=== PATIENT | male | born 1960 | race African-American/Black ===

== ENCOUNTER 2018-08-19 02:45 | Inpatient (IN) | payer OTHER ==
[2018-08-19] MEDS ORDERED: Albuterol Sulfate 2.5 mg/3 ml Neb ONE (02:52)
[2018-08-19 03:11] LABS: #Basophils 0.1 thou/uL (0.0-0.2); #Eosinphils 0.1 thou/uL (0.0-0.7); #Lymphocytes 2.6 thou/uL (1.20-3.40); #Monocytes 0.9 thou/uL (0.11-0.59); #Neutrophils 2.7 thou/uL (1.40-6.50); %Basophils 1.8 % (0.0-1.0); %Eosinophils 1.8 % (0.0-10.0); %Lymphocytes 40.4 % (21.0-51.0); %Monocytes 14.4 % (0.0-10.0); %Neutrophils 41.7 % (42.0-75.0); Hemoglobin 14.9 g/dL (14.0-18.0); Mean Corpuscular HGB CONC 33.2 g/dL (32.0-36.0); Mean Corpuscular Hemoglobin 30.4 pg (27.0-31.0); Mean Corpuscular Volume 91.5 fL (78.0-98.0); Mean Platelet Volume 9.7 fL (7.4-10.4); Platelet Count 178 thou/uL (130-400); RBC Distribution Width 12.1 % (11.5-14.5); White Blood Cell (WBC) Count 6.5 thou/uL (4.8-10.8)
[2018-08-19 03:12] LABS: Actual Bicarbonate (HCO3a) 23.1 mEq/L (22-28); Analyzer IN Cardio ER; Base Excess (BEa) -3.1 mEq/L (-2.0 to +3.0); CO2 Tension 45.7 mmHg (35.0-45.0); Carboxyhemoglobin (COHb) 0.3 gm% (0.0-3.0); O2 Tension (PaO2) 176.5 mmHg (80.0-100.0); Potassium - ABG Lab 3.26 mmol/L (3.70-5.30); pH, Arterial 7.32 (7.35-7.45)
[2018-08-19 03:21] LABS: ALV-art Gradient 51.575 (0-20); Puncture Site RRA
[2018-08-19 03:39] LABS: ALT (SGPT) 55 U/L (8-55); AST (SGOT) 37 U/L (5-34); Albumin 4.8 g/dL (3.5-5.0); Alkaline Phosphatase 102 U/L (40-150); Anion Gap 21 mmol/L (10-20); BUN (Urea Nitrogen) 11 mg/dL (8.4-25.7); Bilirubin, Total 0.6 mg/dL (0.2-1.2); CK (CPK) 124 U/L (30-200); Calc. Creatinine Clearance 0 mL/min (70-130); Calcium 9.8 mg/dL (7.8-10.44); Carbon Dioxide 17 mmol/L (22-29); Chloride 110 mmol/L (98-107); Estimated GFR-MDRD 76; Globulin 2.5 g/dL (2.4-3.5); Glucose 212 mg/dL (70-105); Potassium 3.7 mmol/L (3.5-5.1); Protein, Total 7.3 g/dL (6.0-8.3); Sodium 144 mmol/L (136-145)
[2018-08-19 04:45] LABS: Lactic Acid 5.6 mmol/L (0.5-2.2)
[2018-08-19] MEDS ORDERED: Piperacillin/Tazobactam 3.375 GM VIAL ONE (05:04)
--- NOTE | 2018-08-19 07:19 | HP ---
PRIMARY CARE PHYSICIAN: Viraj Pascal MD POWER BALLAST MACHINE OPERATOR: Pop Bond MD CHIEF COMPLAINT: Feeling weak and short of breath. HISTORY OF PRESENT ILLNESS: Mr. Bustos is a very pleasant 57-year-old gentleman, who has a history of COPD, chronic respiratory failure, hypertension, and chronic kidney disease. He was in his usual state of health until last week when he says that he was coughing more and spitting up phlegm, which has been bright yellow. He says he had seen Dr. Bond recently and had been on a course of steroids and had recently just finished the steroids about 2 to 3 days ago. He also says that Dr. Bond was trying different inhalers out with him and says that he had been in between taking Breo and Ellipta and another inhaler, but was likely going to go back to QVAR as well as Atrovent and possibly Proventil. It is a kind of difficult to get a full detailed medication history from him, but it sounds like he may have been off some of his inhalers in the last couple of days. He denies any sick contacts. He denies any chest pain. He denies any fevers or chills. He also denies any increase in lower extremity edema, but says that lately everything has been out of control with regard to blood pressure and blood sugar and once this seemed to be getting better, then his breathing got out of control. When he was evaluated in the ER, he was found to be hypoxic and required BiPAP and he is being admitted to the [facility]. REVIEW OF SYSTEMS: All systems were reviewed and are negative except for that mentioned in the history of present illness. 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 PAST SURGICAL HISTORY: He has had surgery on his left foot, elbow surgery, finger surgery, and jaw surgery. ALLERGIES: NO KNOWN DRUG ALLERGIES. SOCIAL HISTORY: He is . He is a former smoker, he quit 10 years ago. He denies any drug use and he occasionally drinks. Code status is full code. FAMILY HISTORY: Significant for hypertension, cancer, and diabetes. MEDICATIONS: He is not sure of all of the names and doses of his medications, but is on QVAR, Atrovent, and Breo. PHYSICAL EXAMINATION: GENERAL: He is alert and oriented. He appears to be in some distress due to shortness of breath. He is well developed and well nourished. VITAL SIGNS: Blood pressure was 166/92; heart rate is in the 90s; respiratory rate of 24; and temperature, he is afebrile, 98.6. HEENT: His pupils are equal, round, and reactive to light. Extraocular muscles are intact. Sclerae are anicteric. Throat; no erythema, no exudates. NECK: No adenopathy. No bruits. LUNGS: He has decreased air movement throughout. He does not have any rales, only very faint wheeze. CARDIOVASCULAR: Heart rate is tachycardic. There is no S3 or S4. No appreciable murmurs, clicks, or rubs. ABDOMEN: Obese. It is soft. It is nontender, nondistended. Positive for bowel sounds. No rebound or guarding. EXTREMITIES: He has trace pedal edema of the left greater than the right. He has some chronic venous stasis changes. NEUROLOGIC: Cranial nerves II through XII are intact. Muscle strength is 5/5 in both his upper and lower extremities. SKIN AND INTEGUMENT: There are no skin changes. No rash. LABORATORY RESULTS: Sodium is 144, potassium 3.7, chloride is 110, CO2 of 17, BUN of 11, creatinine 1.2, and glucose is 212. Lactic acid was 5.6. White blood cell count 6.5, hemoglobin 14.9, hematocrit is 44.9, and platelet count is 178. ABG; pH of 7.32, pCO2 of 45.7, and pO2 is 176. ASSESSMENT: This is a pleasant 57-year-old gentleman, who is in acute on chronic respiratory distress due to chronic obstructive pulmonary disease exacerbation. 1. For the chronic obstructive pulmonary disease exacerbation, he will be admitted to the [facility], since he is on BiPAP. His open hearth worker will be consulted. We will place him on DuoNeb and IV steroids as well as a long-acting beta-agonist. He has recently been hospitalized in May and his charts will need to be merged and for this reason, we will cover him for hospital-acquired organisms. 2. For diabetes mellitus, we will need to find out the names and doses of his medications and reconcile these. He will be placed on sliding scale. 3. Hypertension. Again, we will need to reconcile his medications and restart as appropriate and he will be on p.r.n. medications. Further recommendations will depend on his progress. Job ID: [id number]
[2018-08-19] MEDS ORDERED: Acetaminophen 325 MG TAB PO PRN (07:36)
[2018-08-19] MEDS ORDERED: Benzonatate 100 MG CAP PO PRN (07:36)
[2018-08-19] MEDS ORDERED: hydrALAZINE 20 MG/ML VIAL SLOW IVP PRN (07:36)
[2018-08-19] MEDS ORDERED: Temazepam 15 MG CAP PO PRN (07:36)
[2018-08-19] MEDS ORDERED: Dextrose 5% in Water 1,000 ML IV PRN (07:36)
[2018-08-19] MEDS ORDERED: Dextrose 50% Abboject 50 ML SYRINGE SLOW IVP PRN (07:36)
[2018-08-19] MEDS ORDERED: Ondansetron PF 4 MG/2 ML Vial IVP PRN (07:36)
[2018-08-19] MEDS ORDERED: Calcium Carbonate 500 MG ChewTAB PO PRN (07:53)
[2018-08-19] MEDS ORDERED: Ondansetron ODT 4 MG TAB PO PRN (07:53)
[2018-08-19] MEDS ORDERED: Cepastat Lozenges 1 LOZ PO PRN (07:53)
[2018-08-19] MEDS ORDERED: Loratadine 10 MG TAB PO PRN (07:53)
[2018-08-19] MEDS ORDERED: Loperamide HCl 2 MG CAP PO PRN (07:53)
[2018-08-19] MEDS ORDERED: Eucerin (Mineral Oil/Petrolatum,White) 30 gm Jar TOP PRN (07:53)
[2018-08-19] MEDS ORDERED: Senokot S 8.6-50 MG TAB PO PRN (07:53)
[2018-08-19] MEDS ORDERED: Sodium Chloride 0.65% Nasal 44 ML BOT EA NARE PRN (07:53)
[2018-08-19] MEDS ORDERED: Artificial Tears 18 DROP/0.9 ML EA EYE PRN (07:53)
[2018-08-19] MEDS ORDERED: Diabetic Tussin 200 MG/10 ML UDCUP PO PRN (07:53)
--- NOTE | 2018-08-19 08:09 | RAD ---
RADIOGRAPH CHEST 1 VIEW: Date: 08/19/2018. Time: 2:57 a.m. HISTORY: A 57-year-old male with dyspnea. COMPARISON: 06/26/2018 and 06/22/2018. FINDINGS: There is a small region of increased attenuation effacing the left lateral costophrenic angle and the lateral aspect of the left hemidiaphragm. This is similar in appearance to 06/26/2018, but this find ing was not present on 06/22/2018. The rest of the visualized lung arenas are clear. No cardiomegal y or pneumothorax. No pulmonary edema. IMPRESSION: Small opacity at the lingula persists since 06/26/2018. This could be an infiltrate, atelectasis, or pleural effusion. A lateral view would be useful. CLAUDY [] POS: LOBITO
[2018-08-19] MEDS ORDERED: Enoxaparin Sodium 40 MG/0.4 ML SYRINGE ONE (08:13)
[2018-08-19] MEDS ORDERED: HumaLOG 300 UNITS/3 ML VIAL ONE (08:13)
[2018-08-19] MEDS: Sodium Chloride 0.9% 1,000 ML IV SCH ×2 (08:35→20:42)
[2018-08-19] MEDS: Enoxaparin Sodium 40 MG/0.4 ML SYRINGE SC SCH (08:36)
[2018-08-19] MEDS: Vancomycin HCl 1 GM in Premix Bag 1 BAG IVPB SCH ×2 (08:36→20:42)
[2018-08-19] MEDS: HumaLOG 300 UNITS/3 ML VIAL SC PRN ×3 (08:37→20:44)
[2018-08-19] MEDS: Saccharomyces boulardii 250 MG CAP PO SCH (09:19)
--- NOTE | 2018-08-19 12:33 | PDOC.PN ---
- Subjective Encounter Start Date: 08/19/18 Encounter Start Time: 09:50 -: old records requested/rev Patient seen and examined. pt has dry cough, feels dyspnea, his sats drops with sleep, No overnight events - Objective Resuscitation Status - Order Detail: 08/19/18 06:46 Resuscitation Status Routine Resuscitation Status: FULL: Full Resuscitation MAR Reviewed: Yes Vital Signs & Weight: Vital Signs (12 hours) Pulse Resp 08/19/18 09:54 117 H 18 Result Diagrams: 08/19/18 03:03 08/19/18 03:03 Additional Labs: Accuchecks 08/19/18 08:31 POC Glucose 252 H Radiology Reviewed by me: Yes (chest xray reviewed) EKG Reviewed by me: Yes (sinus tachycardia) Phys Exam - Physical Examination Constitutional: NAD HEENT: PERRLA, moist MMs, sclera anicteric Neck: no JVD, supple reduced air entry both side Cardiovascular: RRR, no significant murmur, no rub tachycardia Gastrointestinal: soft, non-tender, no distention, positive bowel sounds Musculoskeletal: no edema, pulses present Neurological: non-focal, normal sensation Lymphatic: no nodes Psychiatric: normal affect, A&O x 3 Skin: no rash, normal turgor Dx/Plan (1) Acute on chronic respiratory failure with hypoxia Code(s): J96.21 - ACUTE AND CHRONIC RESPIRATORY FAILURE WITH HYPOXIA Status: Acute (2) COPD exacerbation Code(s): J44.1 - CHRONIC OBSTRUCTIVE PULMONARY DISEASE W (ACUTE) EXACERBATION Status: Acute (3) Lactic acidosis Code(s): E87.2 - ACIDOSIS Status: Acute (4) Diabetes type 2, controlled Code(s): E11.9 - TYPE 2 DIABETES MELLITUS WITHOUT COMPLICATIONS Status: Chronic (5) Hypertension Code(s): I10 - ESSENTIAL (PRIMARY) HYPERTENSION Status: Chronic - Plan cont current plan of care, continue antibiotics, respiratory therapy * continue bipap * pulmonary consulted * continue solumedrol, duoneb, * continue empiric levaquin and vancomycin * medication reviewed as below * symptomatic treatment * he will need to monitor in imcu as he will need intermittently bipap given his terminal copd * will check viral panel. * continue ivf * repeat labs tomorrow Review of Systems - Review of Systems ENT: negative: Ear Pain, Ear Discharge, Nose Pain, Nose Discharge, Nose Congestion, Mouth Pain, Mouth Swelling, Throat Pain, Throat Swelling, Other Respiratory: Cough, Shortness of Breath, SOB with Excertion, Wheezing. negative : Dry, Hemoptysis, Pleuritic Pain, Sputum Cardiovascular: negative: chest pain, palpitations, orthopnea, paroxysmal nocturnal dyspnea, edema, light headedness, other Gastrointestinal: negative: Nausea, Vomiting, Abdominal Pain, Diarrhea, Constipation, Melena, Hematochezia, Other Genitourinary: negative: Dysuria, Frequency, Incontinence, Hematuria, Retention , Other Musculoskeletal: negative: Neck Pain, Shoulder Pain, Arm Pain, Back Pain, Hand Pain, Leg Pain, Foot Pain, Other Skin: negative: Rash, Lesions, Raul, Bruising, Other - Medications/Allergies Allergies/Adverse Reactions: Allergies Allergy/AdvReac Type Severity Reaction Status Date / Time No Known Allergies Allergy Unverified 08/19/18 06:19 Medications: Current Medications Acetaminophen (Tylenol) 650 mg PO Q4H PRN PRN Reason: Headache/Fever/Mild Pain (1-3) Albuterol/Ipratropium (Duoneb) 3 ml NEB [id number] [facility] Last Admin: 08/19/18 09:54 Dose: 3 ml Albuterol/Ipratropium (Duoneb) 3 ml NEB [id number] PRN PRN Reason: SOB &/or Wheezing Artificial Tears (Tears Naturale) 2 drop EA EYE PRN PRN PRN Reason: Dry Eyes Benzonatate (Tessalon) 100 mg PO Q6H PRN PRN Reason: Cough Calcium Carbonate (Tums) 1,000 mg PO Q4H PRN PRN Reason: Heartburn or Indigestion Dextrose/Water (Dextrose 50%) 25 gm SLOW IVP PRN PRN PRN Reason: Hypoglycemia Enoxaparin Sodium (Lovenox) 40 mg SC 0900 [facility] Last Admin: 08/19/18 08:36 Dose: 40 mg Glucagon (Glucagon) 1 mg IM PRN PRN PRN Reason: Hypoglycemia Guaifenesin (Robitussin Sf) 200 mg PO Q4H PRN PRN Reason: Cough Hydralazine HCl (Apresoline) 10 mg SLOW IVP Q4H PRN PRN Reason: SBP > 180 and HR < 70 Dextrose/Water (D5w) 1,000 mls @ 0 mls/hr IV .Q0M PRN PRN Reason: Hypoglycemia Levofloxacin 750 mg/ Device 150 mls @ 100 mls/hr IVPB Q24HR [facility] Last Admin: 08/19/18 08:08 Dose: 150 mls Sodium Chloride (Normal Saline 0.9%) 1,000 mls @ 75 mls/hr IV .[id number] [facility] Last Admin: 08/19/18 08:35 Dose: 1,000 mls Vancomycin HCl 1 gm/ Device 200 mls @ 200 mls/hr IVPB Q12HR [facility] Last Admin: 08/19/18 08:36 Dose: 200 mls Insulin Human Lispro (Humalog) 0 units SC .MODERATE SLIDING SC PRN PRN Reason: Moderate Correctional Scale Last Admin: 08/19/18 12:31 Dose: 6 unit Insulin Human Lispro (Humalog) 0 units SC .BEDTIME SLIDING SC PRN PRN Reason: Bedtime Correctional Scale Loperamide HCl (Imodium) 2 mg PO PRN PRN PRN Reason: Diarrhea/Loose Stools Loratadine (Claritin) 10 mg PO DAILYPRN PRN PRN Reason: Sinus Symptoms Methylprednisolone Sodium Succinate (Solu-Medrol) 40 mg IVP Q6HR [facility] Last Admin: 08/19/18 12:26 Dose: 40 mg Mineral Oil/White Petrolatum (Eucerin Cream) 0 gm TOP BIDPRN PRN PRN Reason: Dry Skin Mometasone Furoate/Formoterol Fumar (Dulera 100 Mcg/5 Mcg Inhaler) 1 puff INH BID-RT [facility] Ondansetron HCl (Zofran) 4 mg IVP Q6H PRN PRN Reason: Nausea/Vomiting Ondansetron HCl (Zofran Odt) 4 mg PO Q6H PRN PRN Reason: Nausea/Vomiting Pantoprazole Sodium (Protonix) 40 mg PO DAILY [facility] Last Admin: 08/19/18 08:57 Dose: 40 mg Saccharomyces Boulardii (Florastor) 250 mg PO DAILY [facility] Last Admin: 08/19/18 09:19 Dose: 250 mg Senna/Docusate Sodium (Senokot S) 2 tab PO BID PRN PRN Reason: Constipation Sodium Chloride ([place] Nasal [place] 0.65%) 0 ml EA NARE QIDPRN PRN PRN Reason: Nasal Congestion Sodium Chloride (Flush - Normal Saline) 10 ml IVF Q12HR [facility] Last Admin: 08/19/18 11:32 Dose: Not Given Sodium Chloride (Flush - Normal Saline) 10 ml IVF PRN PRN PRN Reason: Saline Flush Temazepam (Restoril) 15 mg PO HSPRN PRN PRN Reason: Insomnia Throat Lozenges (Cepastat Lozenges) 1 eris PO Q2H PRN PRN Reason: Sore Throat
[2018-08-19 13:33] LABS: Lactic Acid 5.7 mmol/L (0.5-2.2)
[2018-08-19 17:03] VITALS: BMI 31.3
[2018-08-19] MEDS: Mometasone/Formoterol 120 PUFF INHALER INH SCH (19:09)
[2018-08-19] MEDS ORDERED: Prevnar 13-Val Conj/PF 0.5 ML SYRINGE IM ONE (21:00)
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
[2018-08-20] MEDS: HumaLOG 300 UNITS/3 ML VIAL SC PRN ×4 (06:02→20:46)
[2018-08-20] MEDS: Sodium Chloride 0.9% 1,000 ML IV SCH ×2 (06:06→23:28)
[2018-08-20] MEDS: Mometasone/Formoterol 120 PUFF INHALER INH SCH ×2 (07:26→18:54)
[2018-08-20 08:01] LABS: #Lymphocytes 0.6 thou/uL (1.20-3.40); #Monocytes 0.3 thou/uL (0.11-0.59); #Neutrophils 8.9 thou/uL (1.40-6.50); %Eosinophils 0.2 % (0.0-10.0); %Lymphocytes 5.9 % (21.0-51.0); %Monocytes 3.4 % (0.0-10.0); %Neutrophils 90.5 % (42.0-75.0); Hemoglobin 12.7 g/dL (14.0-18.0); Mean Corpuscular HGB CONC 32.9 g/dL (32.0-36.0); Mean Corpuscular Hemoglobin 30.7 pg (27.0-31.0); Mean Corpuscular Volume 93.5 fL (78.0-98.0); Mean Platelet Volume 9.6 fL (7.4-10.4); Platelet Count 152 thou/uL (130-400); RBC Distribution Width 12.2 % (11.5-14.5); Red Blood Cell (RBC) Count 4.14 mill/uL (4.70-6.10); White Blood Cell (WBC) Count 9.8 thou/uL (4.8-10.8)
[2018-08-20] MEDS: Saccharomyces boulardii 250 MG CAP PO SCH (08:23)
[2018-08-20] MEDS: Enoxaparin Sodium 40 MG/0.4 ML SYRINGE SC SCH (08:24)
[2018-08-20] MEDS: Vancomycin HCl 1 GM in Premix Bag 1 BAG IVPB SCH ×2 (08:24→20:45)
[2018-08-20 08:25] LABS: Anion Gap 15 mmol/L (10-20); BUN (Urea Nitrogen) 11 mg/dL (8.4-25.7); Calc. Creatinine Clearance 107 mL/min (70-130); Calcium 9.9 mg/dL (7.8-10.44); Carbon Dioxide 20 mmol/L (22-29); Chloride 106 mmol/L (98-107); Estimated GFR-MDRD 88; Glucose 291 mg/dL (70-105); Potassium 4.2 mmol/L (3.5-5.1); Sodium 137 mmol/L (136-145)
[2018-08-20] MEDS ORDERED: Insulin Glargine 10 UNITS in Pre-Filled Syringe 1 EACH SC SCH ×2 (10:15→21:00)
[2018-08-20 10:27] LABS: Lactic Acid 3.7 mmol/L (0.5-2.2)
--- NOTE | 2018-08-20 11:26 | PDOC.PN ---
- Subjective Encounter Start Date: 08/20/18 Encounter Start Time: 09:40 Patient seen and examined. No new complaints. No overnight events he is overall better today - Objective Resuscitation Status - Order Detail: 08/19/18 06:46 Resuscitation Status Routine Resuscitation Status: FULL: Full Resuscitation MAR Reviewed: Yes Vital Signs & Weight: Vital Signs (12 hours) Temp Pulse Resp BP Pulse Ox 08/20/18 11:06 98.9 F 99 22 H 135/91 H 93 L 08/20/18 07:53 92 L 08/20/18 07:26 92 L 08/20/18 07:22 100 18 99 08/20/18 07:21 99.0 F 98 18 168/93 H 91 L 08/20/18 04:00 98.7 F 104 H 16 120/74 92 L 08/20/18 00:21 108 H 20 94 L 08/19/18 23:54 99.0 F 104 H 18 147/93 H 93 L Weight Weight 212 lb 3.2 oz Result Diagrams: 08/20/18 07:54 08/20/18 07:54 Additional Labs: Accuchecks 08/20/18 08/20/18 08/19/18 10:14 05:30 20:19 POC Glucose 377 H 278 H 332 H 08/19/18 12:27 POC Glucose 268 H EKG Reviewed by me: Yes (nsr) Phys Exam - Physical Examination Constitutional: NAD HEENT: PERRLA, moist MMs, sclera anicteric Neck: no JVD, supple reduced air entry+ Cardiovascular: RRR, no significant murmur, no rub Gastrointestinal: soft, non-tender, no distention, positive bowel sounds Musculoskeletal: no edema, pulses present Neurological: non-focal, normal sensation, moves all 4 limbs Lymphatic: no nodes Psychiatric: normal affect, A&O x 3 Skin: no rash, normal turgor Dx/Plan (1) Acute on chronic respiratory failure with hypoxia Code(s): J96.21 - ACUTE AND CHRONIC RESPIRATORY FAILURE WITH HYPOXIA Status: Acute (2) COPD exacerbation Code(s): J44.1 - CHRONIC OBSTRUCTIVE PULMONARY DISEASE W (ACUTE) EXACERBATION Status: Acute (3) Lactic acidosis Code(s): E87.2 - ACIDOSIS Status: Acute (4) Diabetes type 2, controlled Code(s): E11.9 - TYPE 2 DIABETES MELLITUS WITHOUT COMPLICATIONS Status: Chronic (5) Hypertension Code(s): I10 - ESSENTIAL (PRIMARY) HYPERTENSION Status: Chronic - Plan cont current plan of care, continue antibiotics, respiratory therapy * continue current optimum medical treatment for copd * he needs more time to recover but he is improving * pulmonary recommendation appreciated * medication reviewed as below * symptomatic treatment. Review of Systems - Review of Systems ENT: negative: Ear Pain, Ear Discharge, Nose Pain, Nose Discharge, Nose Congestion, Mouth Pain, Mouth Swelling, Throat Pain, Throat Swelling, Other Respiratory: Cough, Shortness of Breath, SOB with Excertion. negative: Dry, Hemoptysis, Pleuritic Pain, Sputum, Wheezing Cardiovascular: negative: chest pain, palpitations, orthopnea, paroxysmal nocturnal dyspnea, edema, light headedness, other Gastrointestinal: negative: Nausea, Vomiting, Abdominal Pain, Diarrhea, Constipation, Melena, Hematochezia, Other Genitourinary: negative: Dysuria, Frequency, Incontinence, Hematuria, Retention , Other Musculoskeletal: negative: Neck Pain, Shoulder Pain, Arm Pain, Back Pain, Hand Pain, Leg Pain, Foot Pain, Other - Medications/Allergies Allergies/Adverse Reactions: Allergies Allergy/AdvReac Type Severity Reaction Status Date / Time No Known Allergies Allergy Verified 08/19/18 17:17 Medications: Current Medications Acetaminophen (Tylenol) 650 mg PO Q4H PRN PRN Reason: Headache/Fever/Mild Pain (1-3) Albuterol/Ipratropium (Duoneb) 3 ml NEB [id number] [facility] Last Admin: 08/20/18 07:22 Dose: 3 ml Albuterol/Ipratropium (Duoneb) 3 ml NEB [id number] PRN PRN Reason: SOB &/or Wheezing Artificial Tears (Tears Naturale) 2 drop EA EYE PRN PRN PRN Reason: Dry Eyes Benzonatate (Tessalon) 100 mg PO Q6H PRN PRN Reason: Cough Calcium Carbonate (Tums) 1,000 mg PO Q4H PRN PRN Reason: Heartburn or Indigestion Dextrose/Water (Dextrose 50%) 25 gm SLOW IVP PRN PRN PRN Reason: Hypoglycemia Enoxaparin Sodium (Lovenox) 40 mg SC 0900 [facility] Last Admin: 08/20/18 08:24 Dose: 40 mg Glucagon (Glucagon) 1 mg IM PRN PRN PRN Reason: Hypoglycemia Guaifenesin (Robitussin Sf) 200 mg PO Q4H PRN PRN Reason: Cough Hydralazine HCl (Apresoline) 10 mg SLOW IVP Q4H PRN PRN Reason: SBP > 180 and HR < 70 Dextrose/Water (D5w) 1,000 mls @ 0 mls/hr IV .Q0M PRN PRN Reason: Hypoglycemia Levofloxacin 750 mg/ Device 150 mls @ 100 mls/hr IVPB Q24HR [facility] Last Admin: 08/20/18 08:24 Dose: 150 mls Sodium Chloride (Normal Saline 0.9%) 1,000 mls @ 75 mls/hr IV .[id number] [facility] Last Admin: 08/20/18 06:06 Dose: 1,000 mls Vancomycin HCl 1 gm/ Device 200 mls @ 200 mls/hr IVPB Q12HR [facility] Last Admin: 08/20/18 08:24 Dose: 200 mls Insulin Glargine 10 units/ (Miscellaneous Medication) 0.1 mls @ 0 mls/hr SC HS [facility] Insulin Glargine 10 units/ (Miscellaneous Medication) 0.1 mls @ 0 mls/hr SC QAM [facility] Insulin Glargine 10 units/ (Miscellaneous Medication) 0.1 mls @ 0 mls/hr SC NOW [facility] Stop: 08/20/18 12:00 Insulin Human Lispro (Humalog) 0 units SC .MODERATE SLIDING SC PRN PRN Reason: Moderate Correctional Scale Last Admin: 08/20/18 06:02 Dose: 6 unit Insulin Human Lispro (Humalog) 0 units SC .BEDTIME SLIDING SC PRN PRN Reason: Bedtime Correctional Scale Last Admin: 08/19/18 20:44 Dose: 4 unit Loperamide HCl (Imodium) 2 mg PO PRN PRN PRN Reason: Diarrhea/Loose Stools Loratadine (Claritin) 10 mg PO DAILYPRN PRN PRN Reason: Sinus Symptoms Methylprednisolone Sodium Succinate (Solu-Medrol) 20 mg IVP Q6HR [facility] Mineral Oil/White Petrolatum (Eucerin Cream) 0 gm TOP BIDPRN PRN PRN Reason: Dry Skin Mometasone Furoate/Formoterol Fumar (Dulera 100 Mcg/5 Mcg Inhaler) 1 puff INH BID-RT [facility] Last Admin: 08/20/18 07:26 Dose: 1 puff Ondansetron HCl (Zofran) 4 mg IVP Q6H PRN PRN Reason: Nausea/Vomiting Ondansetron HCl (Zofran Odt) 4 mg PO Q6H PRN PRN Reason: Nausea/Vomiting Pantoprazole Sodium (Protonix) 40 mg PO DAILY [facility] Last Admin: 08/20/18 08:23 Dose: 40 mg Saccharomyces Boulardii (Florastor) 250 mg PO DAILY [facility] Last Admin: 08/20/18 08:23 Dose: 250 mg Senna/Docusate Sodium (Senokot S) 2 tab PO BID PRN PRN Reason: Constipation Sodium Chloride ([place] Nasal [place] 0.65%) 0 ml EA NARE QIDPRN PRN PRN Reason: Nasal Congestion Sodium Chloride (Flush - Normal Saline) 10 ml IVF Q12HR [facility] Last Admin: 08/20/18 08:24 Dose: 10 ml Sodium Chloride (Flush - Normal Saline) 10 ml IVF PRN PRN PRN Reason: Saline Flush Temazepam (Restoril) 15 mg PO HSPRN PRN PRN Reason: Insomnia Throat Lozenges (Cepastat Lozenges) 1 eris PO Q2H PRN PRN Reason: Sore Throat
--- NOTE | 2018-08-20 11:40 | PRG ---
DATE OF SERVICE: 08/20/2018 SUBJECTIVE: Mr. Bustos says he is feeling better. He has no complaints today. He is afebrile. OBJECTIVE: VITAL SIGNS: Heart rate is 99, respiratory rate is 22, oximetry is 93, blood pressure 135/91. LUNGS: Remarkable for end-expiratory wheezes. HEART: Regular rhythm. S1, S2 are normal. ABDOMEN: Soft and nontender. EXTREMITIES: Without edema. LABORATORY DATA: Sodium 137, potassium 4.2, chloride 106, bicarb 20, BUN 11, and creatinine 1.06. White count 9.8, hemoglobin 12.7, platelets 152. IMPRESSION: 1. Status asthmaticus/chronic obstructive pulmonary disease exacerbation. 2. 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 3. Diabetes, poorly controlled because of steroid use. 4. ? steroid dependence. His shortness of breath this admission started 3 days after tapering off his steroids. PLAN: Continue current supportive care. Medical records from past admissions are not available in the computer system and these records need to be identified and merged. Job ID: [id number]
[2018-08-21] MEDS: HumaLOG 300 UNITS/3 ML VIAL SC PRN ×4 (05:56→20:48)
[2018-08-21] MEDS: Mometasone/Formoterol 120 PUFF INHALER INH SCH ×2 (06:47→19:10)
[2018-08-21] MEDS ORDERED: Insulin Glargine 10 UNITS in Pre-Filled Syringe 1 EACH SC SCH (09:00)
[2018-08-21] MEDS: Enoxaparin Sodium 40 MG/0.4 ML SYRINGE SC SCH (09:01)
[2018-08-21] MEDS: Insulin Glargine 20 UNITS in Pre-Filled Syringe 1 EACH SC SCH (09:01)
[2018-08-21] MEDS: Saccharomyces boulardii 250 MG CAP PO SCH (09:02)
--- NOTE | 2018-08-21 11:04 | PDOC.PN ---
- Subjective Encounter Start Date: 08/21/18 Encounter Start Time: 09:20 Patient seen and examined. No new complaints. No overnight events he did not require bipap, has cough, less dyspnea - Objective Resuscitation Status - Order Detail: 08/19/18 06:46 Resuscitation Status Routine Resuscitation Status: FULL: Full Resuscitation MAR Reviewed: Yes Vital Signs & Weight: Vital Signs (12 hours) Temp Pulse Resp BP BP Pulse Ox 08/21/18 08:00 92 L 08/21/18 07:37 98.6 F 88 17 141/94 H 92 L 08/21/18 06:53 91 18 93 L 08/21/18 06:47 75 18 93 L 08/21/18 03:46 98.7 F 84 18 153/86 H 94 L 08/20/18 23:40 96 08/20/18 23:34 98.9 F 92 18 129/82 93 L Weight Weight 209 lb 8 oz I&O: 08/20/18 08/21/18 08/22/18 06:59 06:59 06:59 Intake Total 3520 Output Total 5775 Balance -2255 Result Diagrams: 08/20/18 07:54 08/20/18 07:54 Additional Labs: Accuchecks 08/21/18 08/20/18 08/20/18 05:56 20:08 16:24 POC Glucose 361 H 355 H 359 H EKG Reviewed by me: Yes (nsr) Phys Exam - Physical Examination Constitutional: NAD HEENT: PERRLA, moist MMs, sclera anicteric Neck: no JVD, supple Respiratory: no wheezing, no rales, no rhonchi Cardiovascular: RRR, no significant murmur, no rub Gastrointestinal: soft, non-tender, no distention, positive bowel sounds Musculoskeletal: no edema, pulses present Neurological: non-focal, normal sensation, moves all 4 limbs Lymphatic: no nodes Psychiatric: normal affect, A&O x 3 Skin: no rash, normal turgor Dx/Plan (1) Acute on chronic respiratory failure with hypoxia Code(s): J96.21 - ACUTE AND CHRONIC RESPIRATORY FAILURE WITH HYPOXIA Status: Acute (2) COPD exacerbation Code(s): J44.1 - CHRONIC OBSTRUCTIVE PULMONARY DISEASE W (ACUTE) EXACERBATION Status: Acute (3) Lactic acidosis Code(s): E87.2 - ACIDOSIS Status: Acute (4) Diabetes type 2, controlled Code(s): E11.9 - TYPE 2 DIABETES MELLITUS WITHOUT COMPLICATIONS Status: Chronic (5) Hypertension Code(s): I10 - ESSENTIAL (PRIMARY) HYPERTENSION Status: Chronic - Plan cont current plan of care, continue antibiotics, respiratory therapy * his blood sugar not controlled due to steroid, today I have increased levemir dose * medication reviewed as below * symptomatic treatment * transfer to medical * continue current copd treatment * ambulate as tolerated * expecting discharge soon. Review of Systems - Review of Systems Constitutional: negative: fever, chills, sweats, weakness, malaise, other Eyes: negative: Pain, Vision Change, Conjunctivae Inflammation, Eyelid Inflammation, Redness, Other ENT: negative: Ear Pain, Ear Discharge, Nose Pain, Nose Discharge, Nose Congestion, Mouth Pain, Mouth Swelling, Throat Pain, Throat Swelling, Other Respiratory: Cough. negative: Dry, Shortness of Breath, Hemoptysis, SOB with Excertion, Pleuritic Pain, Sputum, Wheezing Cardiovascular: negative: chest pain, palpitations, orthopnea, paroxysmal nocturnal dyspnea, edema, light headedness, other Gastrointestinal: negative: Nausea, Vomiting, Abdominal Pain, Diarrhea, Constipation, Melena, Hematochezia, Other Genitourinary: negative: Dysuria, Frequency, Incontinence, Hematuria, Retention , Other Musculoskeletal: negative: Neck Pain, Shoulder Pain, Arm Pain, Back Pain, Hand Pain, Leg Pain, Foot Pain, Other Skin: negative: Rash, Lesions, Raul, Bruising, Other - Medications/Allergies Allergies/Adverse Reactions: Allergies Allergy/AdvReac Type Severity Reaction Status Date / Time No Known Allergies Allergy Verified 08/19/18 17:17 Medications: Current Medications Acetaminophen (Tylenol) 650 mg PO Q4H PRN PRN Reason: Headache/Fever/Mild Pain (1-3) Albuterol/Ipratropium (Duoneb) 3 ml NEB [id number] Last Admin: 08/21/18 06:53 Dose: 3 ml Albuterol/Ipratropium (Duoneb) 3 ml NEB [id number] PRN PRN Reason: SOB &/or Wheezing Artificial Tears (Tears Naturale) 2 drop EA EYE PRN PRN PRN Reason: Dry Eyes Benzonatate (Tessalon) 100 mg PO Q6H PRN PRN Reason: Cough Calcium Carbonate (Tums) 1,000 mg PO Q4H PRN PRN Reason: Heartburn or Indigestion Dextrose/Water (Dextrose 50%) 25 gm SLOW IVP PRN PRN PRN Reason: Hypoglycemia Enoxaparin Sodium (Lovenox) 40 mg SC 0900 [facility] Last Admin: 08/21/18 09:01 Dose: 40 mg Glucagon (Glucagon) 1 mg IM PRN PRN PRN Reason: Hypoglycemia Guaifenesin (Robitussin Sf) 200 mg PO Q4H PRN PRN Reason: Cough Hydralazine HCl (Apresoline) 10 mg SLOW IVP Q4H PRN PRN Reason: SBP > 180 and HR < 70 Dextrose/Water (D5w) 1,000 mls @ 0 mls/hr IV .Q0M PRN PRN Reason: Hypoglycemia Levofloxacin 750 mg/ Device 150 mls @ 100 mls/hr IVPB Q24HR [facility] Last Admin: 08/21/18 09:02 Dose: 150 mls Insulin Glargine 20 units/ (Miscellaneous Medication) 0.2 mls @ 0 mls/hr SC [facility] Insulin Glargine 20 units/ (Miscellaneous Medication) 0.2 mls @ 0 mls/hr SC QAM [facility] Last Admin: 08/21/18 09:01 Dose: 0.2 mls Insulin Human Lispro (Humalog) 0 units SC .MODERATE SLIDING SC PRN PRN Reason: Moderate Correctional Scale Last Admin: 08/21/18 10:40 Dose: 10 unit Insulin Human Lispro (Humalog) 0 units SC .BEDTIME SLIDING SC PRN PRN Reason: Bedtime Correctional Scale Last Admin: 08/20/18 20:46 Dose: 5 unit Loperamide HCl (Imodium) 2 mg PO PRN PRN PRN Reason: Diarrhea/Loose Stools Loratadine (Claritin) 10 mg PO DAILYPRN PRN PRN Reason: Sinus Symptoms Methylprednisolone Sodium Succinate (Solu-Medrol) 20 mg IVP Q6HR [facility] Last Admin: 08/21/18 05:56 Dose: 20 mg Mineral Oil/White Petrolatum (Eucerin Cream) 0 gm TOP BIDPRN PRN PRN Reason: Dry Skin Mometasone Furoate/Formoterol Fumar (Dulera 100 Mcg/5 Mcg Inhaler) 1 puff INH BID-RT [facility] Last Admin: 08/21/18 06:47 Dose: 1 puff Ondansetron HCl (Zofran) 4 mg IVP Q6H PRN PRN Reason: Nausea/Vomiting Ondansetron HCl (Zofran Odt) 4 mg PO Q6H PRN PRN Reason: Nausea/Vomiting Pantoprazole Sodium (Protonix) 40 mg PO DAILY [facility] Last Admin: 08/21/18 09:02 Dose: 40 mg Saccharomyces Boulardii (Florastor) 250 mg PO DAILY [facility] Last Admin: 08/21/18 09:02 Dose: 250 mg Senna/Docusate Sodium (Senokot S) 2 tab PO BID PRN PRN Reason: Constipation Sodium Chloride (Mccreary Nasal [place] 0.65%) 0 ml EA NARE QIDPRN PRN PRN Reason: Nasal Congestion Sodium Chloride (Flush - Normal Saline) 10 ml IVF Q12HR [facility] Last Admin: 08/21/18 09:15 Dose: 10 ml Sodium Chloride (Flush - Normal Saline) 10 ml IVF PRN PRN PRN Reason: Saline Flush Temazepam (Restoril) 15 mg PO HSPRN PRN PRN Reason: Insomnia Throat Lozenges (Cepastat Lozenges) 1 eris PO Q2H PRN PRN Reason: Sore Throat
--- NOTE | 2018-08-21 12:30 | PRG ---
DATE OF SERVICE: 08/21/2018 SUBJECTIVE: He feels fine, has no complaints. OBJECTIVE: VITAL SIGNS: Temperature 98.8, pulse 100, respirations 21, O2 saturation 95% on 2 L, and blood pressure 145/81. HEENT: Unremarkable. NECK: No JVD. CHEST: Clear. CARDIAC: S1 and S2. Regular. ABDOMEN: Soft. EXTREMITIES: No edema. LABORATORY DATA: His blood work was reviewed, shows severely elevated glucose. ASSESSMENT: 1. Status asthmaticus/chronic obstructive pulmonary disease with exacerbation - now doing better. 2. Diabetes mellitus, aggravated by steroid use. PLAN: He is being transferred to the medical floor. I will go ahead and switch him over to oral steroids. The hope is he will be able to go home pretty soon. Job ID: [id number]
[2018-08-21] MEDS: predniSONE 20 MG TAB PO SCH (20:49)
[2018-08-21] MEDS ORDERED: Insulin Glargine 20 UNITS in Pre-Filled Syringe 1 EACH SC SCH (21:00)
--- NOTE | 2018-08-21 23:46 | EKG ---
Test Reason : Blood Pressure : / mmHG Vent. Rate : 138 BPM Atrial Rate : 138 BPM P-R Int : 130 ms QRS Dur : 084 ms QT Int : 300 ms P-R-T Axes : 048 072 -14 degrees QTc Int : 454 ms Sinus tachycardia T wave abnormality, consider inferior ischemia Abnormal ECG Confirmed by ADÁN RODRÍGUEZ DO ([id number]), editor magazine JOSE LUIS ANDERSON ([id number]) on 08/21/2018 11:45:46 PM Referred By: Confirmed By:ADÁN RODRÍGUEZ DO
[2018-08-22] MEDS: HumaLOG 300 UNITS/3 ML VIAL SC PRN (06:14)
[2018-08-22] MEDS: Mometasone/Formoterol 120 PUFF INHALER INH SCH (06:45)
[2018-08-22 08:24] VITALS: BP 141/85; TEMP 97.7
[2018-08-22] MEDS: Enoxaparin Sodium 40 MG/0.4 ML SYRINGE SC SCH (09:35)
[2018-08-22] MEDS: Insulin Glargine 20 UNITS in Pre-Filled Syringe 1 EACH SC SCH (09:36)
[2018-08-22] MEDS: predniSONE 20 MG TAB PO SCH (09:37)
[2018-08-22] MEDS: Saccharomyces boulardii 250 MG CAP PO SCH (09:37)
--- NOTE | 2018-08-22 11:53 | DIS ---
DATE OF ADMISSION: 08/19/2018 DATE OF DISCHARGE: 08/22/2018 PRIMARY CARE PHYSICIAN: [facility] call admission. DISCHARGE DISPOSITION: Home. PRIMARY DISCHARGE DIAGNOSES: 1. Acute on chronic respiratory failure with hypoxia, resolved. 2. Chronic obstructive pulmonary disease exacerbation, controlled. 3. Lactic acidosis, resolved. SECONDARY DISCHARGE DIAGNOSES: Chronic obstructive pulmonary disease/asthma, hypertension, diabetes type 2, obesity with BMI 30. PRIMARY PROCEDURE/OPERATION: None. RADIOLOGICAL INVESTIGATION: Chest x-ray on admission showed lingular opacity. SIGNIFICANT LABORATORY DATA: WBC 9.8, hemoglobin 12.7, platelet 152. ABG; pH of 7.32, pCO2 of 45.7, pO2 of 176, bicarbonate 23.1. BMP; sodium 137, potassium 4.2, BUN 11, creatinine 1.06, calcium 9.9, serum ketone 0.16. Blood culture negative. DISCHARGE MEDICATIONS: 1. Levaquin 750 mg p.o. daily for 5 more days. 2. Florastor 250 mg p.o. daily for 5 more days. 3. Dulera 2 puff inhalation b.i.d. 4. Prednisone 20 mg p.o. b.i.d. for 5 days, then 20 mg daily for 5 days, then 10 mg p.o. daily for 5 days. 5. Albuterol inhaler two puffs q.i.d. 6. Lasix 40 mg daily. 7. Glipizide 10 mg daily. 8. Humalog as per sliding scale. 9. Hydralazine 25 mg p.o. t.i.d. 10. Lantus 30 units subcu daily. 11. Singulair 10 mg p.o. daily. 12. Omeprazole 40 mg p.o. daily. 13. Lisinopril 40 mg p.o. daily. CONTRAINDICATION: None. CODE STATUS: Full code. INPATIENT PROPOSAL REP: Dr. Bond and Dr. Palacio were following while in the hospital. TEST RESULTS PENDING ON DISCHARGE: None. ALLERGIES: NO KNOWN DRUG ALLERGIES. DISCHARGE PLAN: Posthospital, the patient will follow up with primary care physician in one week. The patient will make appointment with parimutuel cashier as instructed. HOSPITAL COURSE: A 57-year-old male with above-mentioned medical problem, who has underlying advanced COPD/asthma, and he was admitted by Dr. Borjas. Please see her H and P for further details. On admission, the patient was in respiratory distress. He was having increasing shortness of breath, cough. He was hypoxic on admission. He required BiPAP initially in the emergency room. Subsequently, he was admitted to [facility]. He did not require further BiPAP after admission and his condition was continuously improving. While in the hospital, we treated him with Solu-Medrol, DuoNeb, Dulera, empiric antibiotic therapy that was vancomycin and Levaquin. Because of steroid, his blood sugar was out of control, we tried to control blood sugar while in the hospital, but this still not well controlled, but his respiratory status significantly improved. Upon stabilization, we transferred him to medical floor. We changed steroid to p.o. prednisone. We changed the antibiotic to p.o. The patient is doing much better. He is on room air. He is ambulatory, tolerating p.o. well, and he expressed his wish to go home. On discharge, we had prescribed tapering doses of prednisone. We prescribed five more days of antibiotic therapy. Pulmonary group was following while in the hospital and the patient will follow up with parimutuel cashier. This patient's current medical record is new, but this patient also has previous medical record. I have seen and examined the patient at bedside today. REVIEW OF SYSTEMS: All review of systems is reviewed with him and negative. VITAL SIGNS: Currently temperature 97.7, pulse 92, respiratory rate 18, saturation 97% on room air, blood pressure 141/85, weight 209 pounds. GENERAL: The patient is currently alert, awake, in no obvious acute distress. HEENT: Head; normocephalic, atraumatic. Eyes; pupils round, reactive to light. Extraocular muscles are intact. ENT; oropharynx within normal limits. Moist mucous membranes. No oral lesion. No pharyngeal erythema. No exudate. NECK: Supple. No JVD. No thyromegaly. No carotid bruit. LUNGS: Clear to auscultation without any rhonchi or rales. CARDIAC: S1 and S2 regular without any murmur. ABDOMEN: Soft and benign. EXTREMITIES: No edema. NEUROLOGIC: Nonfocal examination. The patient is medically stable for discharge today. Job ID: [id number]
[2018-08-22] MEDS ORDERED: hydrALAZINE 25 MG TAB PO SCH (15:00)
[2018-08-23] MEDS ORDERED: Montelukast Sodium 10 mg Tablet PO SCH (09:00)
[2018-08-23] MEDS ORDERED: Furosemide 40 MG TAB PO SCH (09:00)
--- NOTE | 2018-08-23 12:08 | PQF ---
CLINICAL DOCUMENTATION IMPROVEMENT CLARIFICATION FORM: ICD-10 Updated PLEASE DO AN ADDENDUM TO THE PROGRESS NOTE WITH ANY DOCUMENTATION UPDATES OR ADDITIONS AND CARRY THROUGH TO DC SUMMARY. THANK YOU. DATE: 08/23/18 ATTN: DR. HARRIS Please exercise your independent, professional judgment in responding to the clarification form. Clinical indicators are provided on the bottom of this form for your review Please check appropriate box(s): [ ] Aspiration Pneumonia [ ] Aspiration Bronchitis [ x ] Empirically treating Gram Negative Pneumonia [ ] Empirically treating Anaerobic Pneumonia [ ] Pneumonia secondary to (specify organism / underlying disease) [ ] Simple Pneumonia (community acquired - nosocomial) [ ] Bronchopneumonia [ ] Pneumonia of unknown etiology [ ] Other diagnosis [ ] Unable to determine In addition, please specify: Present on Admission (POA): [ x ] Yes [ ] No [ ] Unable to determine For continuity of documentation, please document condition throughout progress notes and discharge summary. Thank You. CLINICAL INDICATORS - SIGNS / SYMPTOMS / LABS ER NOTE: "WHEEZING PRESENT, BREATH SOUNDS DIMINISHED, DIFFUSE, ACCESSORY MUSCLE USE" "PNEUMONIA" PULSE 137 RISKS: H/O COPD CHRONIC RESPIRATORY FAILURE TREATMENT: IV VANCOMYCIN (ER) IV LEVAQUIN (ER-08/22) IV ZOSYN (ER) NEB TREATMENTS (08/19-08/22) PREDNISONE (08/21-08/22) ABGS SUPPLEMENTAL OXYGEN PULMONARY CONSULT CHEST XRAY (This form is maintained as a part of the permanent medical record) 2014 [employer]. All Rights Reserved [email or web address] [email or web address] Office: [phone] MARY
== END 2018-08-22 12:26 | disposition home or self-care (01) | DRG 177 ==
LOC: EDBD 02:45 → ERS 02:45 → ERHOLD 06:38 → IMCU/EMU 17:01 → ONC 08-21 19:35
PROVIDERS: ADMIT Internal Medicine; ATTEND Internal Medicine
PROC: 5A09357 Assistance with Respiratory Ventilation, Less than 24 Consecutive Hours, Continuous Positive Airway Pressure (ICD-10-PCS; principal; 2018-08-19)
DX: J15.6 Pneumonia due to other Gram-negative bacteria (principal); J96.21 Acute and chronic respiratory failure with hypoxia; J44.1 Chronic obstructive pulmonary disease with (acute) exacerbation; E87.2 Acidosis; I12.9 Hypertensive chronic kidney disease with stage 1 through stage 4 chronic kidney disease, or unspecified chronic kidney disease; N18.9 Chronic kidney disease, unspecified; E11.22 Type 2 diabetes mellitus with diabetic chronic kidney disease; T38.0X5A Adverse effect of glucocorticoids and synthetic analogues, initial encounter; E66.9 Obesity, unspecified; F41.9 Anxiety disorder, unspecified; Z98.890 Other specified postprocedural states; Z87.891 Personal history of nicotine dependence; Z68.30 Body mass index [BMI] 30.0-30.9, adult
CPT/HCPCS: 36415; 36416; 71045; 80048; 80053; 82010; 82550; 82805; 83605; 83880; 84484; 85025; 87040; 90471; 90670; 90686; 93005; 94640; 94660; 96361; 96365; 96366; 96367; G0008; G0009; J1650; J1825; J1956; J2543; J2920; J3370; J7050; J7506; J7611; J7620